=== PATIENT | female | born 1985 | race Caucasian/White ===

== ENCOUNTER 2020-10-31 03:58 | Emergency (ER) | payer OTHER, MEDICAID, SELFPAY ==
--- NOTE | 2020-10-31 04:00 | XR_ITS ---
WS: [id number] Portable AP upright chest, 10/31/2020 Clinical Data: cp Comparison: Portable chest, 09/06/2015. Findings: No nodules, masses or effusions are seen. The heart is normal. The pulmonary vascularity is not increased. No pneumonia or pneumothorax is seen. There are decorative items over the breasts. Mo nitor leads are on the chest wall. XR/XR chest 1V portable [id number] Impression: Negative chest.
[2020-10-31 04:06] VITALS: BP 83/53; PULSE 77; RESP 18; TEMP 36.8; O2SAT 99; BMI 19.3
--- NOTE | 2020-10-31 04:10 | W.ED.CHESTPA ---
HPI - Chest Pain General: Chief Complaint: Chest Pain Stated Complaint: CP Time Seen by Provider: 10/31/20 04:00 Source: patient Mode of arrival: ambulatory Limitations: no limitations History of Present Illness: HPI narrative: 35-year-old female states over the last week she has had a productive cough and wheezing. She states that today with her cough started having a sharp pain in the center of her chest. States it is much worse with her cough and palpation. States her pain is currently a 5 out of 10. She denies any shortness of breath. She denies any worsening improving factors. Denies any fevers. Associated symptoms: Reports dyspnea; Deny abdominal pain, fever(s), nausea or vomiting Review of Systems Const: Denies: fever(s), chills, body aches or change in appetite Eyes: Denies: blurry vision or eye discomfort ENMT: Denies: throat pain or dental pain Card: Reports: lightheadedness; Denies: chest pain Resp: Reports: dyspnea and productive cough GI: Denies: abdominal pain, nausea, vomiting or diarrhea : Denies: dysuria Musc: Denies: neck pain or back pain Skin/Breast: Denies: rash Neuro: Denies: headache(s) Psych: Denies: depression Willy/Lymph: Denies: easy bruising All/Imm: Denies: urticaria PFSH ED PFSH: Medical History (Updated 10/31/20 @ 05:31 by Saundra Israel MD) Anxiety and depression . Migraine headache Social History Smoking and tobacco status: former smoker Alcohol intake: never Physical Exam Const: COMMON NORMALS: no acute distress, patient oriented x3 and healthy appearing HENMT: COMMON NORMALS: normocephalic and atraumatic HEAD & SCALP: normocephalic and atraumatic Eye: COMMON NORMALS: Equal, round and reactive pupils present and EOMs intact bilaterally PUPIL: Yes Equal, round and reactive pupils present Neck/C-Spine: COMMON NORMALS: full ROM and supple Chest: COMMONS NORMALS: normal inspection of the chest OTHER: point tender over left chest reproduces pain Resp: COMMON NORMALS: normal respiratory effort, No retractions and No use of accessory muscles EFFORT & INSPECTION: Yes audible wheezes Cardio: COMMON NORMALS: regular rate, regular rhythm and No murmurs present (Cardio) RATE: regular rate RHYTHM: regular rhythm GI: COMMON NORMALS: Normal to inspection, nondistended, normoactive bowel sounds present, Soft to palpation, non-tender and no masses PALPATION: Yes Soft to palpation Extremity: COMMON NORMALS: normal to inspection and full ROM Neuro: COMMON NORMALS: patient oriented x3, moves all extremities and no focal motor deficits Psych: COMMON NORMALS: mental status grossly normal, Normal thought process present and cooperative THOUGHT PROCESS: Normal thought process present Skin: COMMON NORMALS: no rashes or lesions noted and no wounds GENERAL SKIN EXAM: no rashes or lesions noted Course Vital Signs: Vital signs: Vital Signs Temperature 98.3 F 10/31/20 04:06 Pulse Rate 83 10/31/20 06:09 Respiratory Rate 18 10/31/20 06:09 Blood Pressure 99/68 10/31/20 06:09 Pulse Oximetry 97 10/31/20 06:09 MDM - Chest Pain MDM Narrative: Medical decision making narrative: Patient presents here with cough congestion with likely bronchitis. She does have chest pain is likely muscular from her cough. She is point tender and her troponins negative. She has no signs of pulmonary embolism or acute coronary syndrome. We will place her on steroid albuterol and antibiotics. She is to follow-up with PCP and return if worsening. She understands and agrees to plan. Lab Data: Labs: Lab Results 10/31/20 10/31/20 10/31/20 Range/Units 04:20 04:20 04:20 WBC 7.8 (4.0-10.0) 10^3/ uL RBC 5.18 (4.1-5.3) 10^6/u L Hgb 14.9 (11.5-15.3) g/dL Hct 45.2 (37.0-47.0) % MCV 87.3 (81-99) fL MCH 28.8 (28.0-34.0) pg MCHC 33.0 (30.0-36.0) g/dL RDW 12.0 L (12.1-15.1) % Plt Count 402 H (130-400) 10^3/c mm MPV 9.6 (7.4-10.4) fL Neut % (Auto) 59.2 % Lymph % (Auto) 27.4 % [place] % (Auto) 9.1 % Eos % (Auto) 3.0 % Baso % (Auto) 0.9 % Neut # (Auto) 4.61 (1.8-7.7) 10^3/u L Lymph # (Auto) 2.1 (0.8-4.8) 10^3/u L [place] # (Auto) 0.7 (0.2-0.9) 10^3/u L Eos # (Auto) 0.2 (0.0-0.8) 10^3/u L Baso # (Auto) 0.1 (0.0-0.1) 10^3/u L Nucleated RBC % (a uto) 0 % Nucleated RBCs # 0.0 /100WBC Sodium 134 L (136-145) mmol/L Potassium 3.8 (3.5-5.1) mmol/L Chloride 97 L (98-107) mmol/L Carbon Dioxide 26 (22-29) mmol/L Anion Gap 14.8 (5-19) BUN 13 (6-20) mg/dL Creatinine 0.6 (0.5-0.9) mg/dL GFR Calculation 112.5 (90-130) mL/min Glucose 115 (65-115) mg/dL Calculated Osmolal ity 279 L (285-295) mOsm/k g Calcium 9.7 (8.5-10.5) mg/dL Total Bilirubin 0.5 (0.15-1.2) mg/dL AST 14 (0-32) U/L ALT < 5 (0-33) U/L Alkaline Phosphata se 109 H (35-105) IU/L Troponin T Baselin e 6 (0-10) ng/L Total Protein 7.8 (6.6-8.7) g/dL Albumin 5.0 (3.5-5.2) g/dL Globulin 2.8 (1.3-4.6) g/dL Imaging Data^: CXR: Attestation: I personally reviewed and interpreted this imaging study as follows: My impression: no acute abnormality EKG Data^: EKG 1: Attestation: I personally reviewed and interpreted this EKG as follows: EKG interpretation date: 10/31/20 EKG interpretation time: 04:07 Interpretation: nsr hr [address] or t wave abnormalities qrs 84 qtc 421 Discharge Plan Discharge Patient Disposition: Home Clinical Impression: Bronchitis Chest pain Qualifiers: Chest pain type: unspecified Qualified Code(s): R07.9 - Chest pain, unspecified Condition: Stable Prescriptions: New cephalexin 500 mg capsule 500 mg PO TID 7 Days Qty: 21 RF: 0 albuterol sulfate 90 mcg/actuation HFA aerosol inhaler 2 inh INHALATION Q6H PRN (Reason: shortness of breath or wheezing) Qty: 8 RF: 0 Naprosyn 500 mg tablet 500 mg PO BID PRN (Reason: pain) Qty: 20 RF: 0 prednisone 50 mg tablet 50 mg PO DAILY Qty: 5 RF: 0 No Action sulfamethoxazole-trimethoprim [Bactrim DS] 800-160 mg tablet 1 tab PO BID Qty: 30 RF: 0 citalopram 40 mg tablet 80 mg PO DAILY 90 Days Qty: 180 RF: 1 sumatriptan succinate [Imitrex] 100 mg tablet 100 mg PO Q2H PRN (Reason: migraine headache) Qty: 10 RF: 3 estradiol [Estrace] 0.5 mg tablet 0.5 mg PO DAILY 30 Days Qty: 30 RF: 5 Discharge Orders: Discharge ED (Routine); Ordered 10/31/20 Ordered By: Saundra Israel Referrals: Kali Liriano MD [Primary Care Provider] - 1-3 days Discharge Diet: Advance as tolerated Discharge Activity: Resume usual activity Patient Instructions: Acute Bronchitis (ED) Stand Alone Forms: Work/School Release Coding Level of Care Code 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
[2020-10-31] MEDS: ondansetron 2 mg/ML SDV 2 mL 4 MG IVP (04:25)
[2020-10-31 04:26] LABS: Basophils # 0.1 10^3/uL (0.0-0.1); Basophils % 0.9 %; Eosinophils # 0.2 10^3/uL (0.0-0.8); Hematocrit 45.2 % (37.0-47.0); Hemoglobin 14.9 g/dL (11.5-15.3); Lymphocytes # 2.1 10^3/uL (0.8-4.8); Lymphocytes % 27.4 %; Mean Corpuscular Hemoglobin 28.8 pg (28.0-34.0); Mean Corpuscular Volume 87.3 fL (81-99); Mean Platelet Volume 9.6 fL (7.4-10.4); Monocytes # 0.7 10^3/uL (0.2-0.9); Monocytes % 9.1 %; Neutrophils # 4.61 10^3/uL (1.8-7.7); Neutrophils % 59.2 %; Nucleated Red Blood Cells % 0 %; Platelet Count 402 10^3/cmm (130-400); Red Blood Count 5.18 10^6/uL (4.1-5.3); White Blood Count 7.8 10^3/uL (4.0-10.0)
[2020-10-31 04:27] VITALS: RESP 22; O2SAT 96
[2020-10-31] MEDS: morphine 4 mg/mL SDV 1 mL IVP (04:27)
[2020-10-31] MEDS: dexamethasone 10 mg/mL INJ IVP (04:31)
[2020-10-31 04:37] VITALS: PULSE 80; RESP 19; O2SAT 99
[2020-10-31] MEDS: ipratropium-albuterol 3 mL Neb INHALATION (04:37)
[2020-10-31 04:42] VITALS: PULSE 88
[2020-10-31 04:47] LABS: Alanine Aminotransferase < 5 U/L (0-33); Alkaline Phosphatase 109 IU/L (35-105); Anion Gap 14.8 (5-19); Aspartate Amino Transferase 14 U/L (0-32); Carbon Dioxide 26 mmol/L (22-29); Chloride 97 mmol/L (98-107); Globulin 2.8 g/dL (1.3-4.6); Glucose 115 mg/dL (65-115); Potassium 3.8 mmol/L (3.5-5.1); Sodium 134 mmol/L (136-145); Total Bilirubin 0.5 mg/dL (0.15-1.2); Total Protein 7.8 g/dL (6.6-8.7)
[2020-10-31 04:49] LABS: Troponin(5th) Baseline 6 ng/L (0-10)
[2020-10-31 04:52] VITALS: BP 110/86; PULSE 87; RESP 17; O2SAT 100
[2020-10-31 05:36] LABS: Blood Urea Nitrogen 13 mg/dL (6-20); Calcium 9.7 mg/dL (8.5-10.5); Glomerular Filtration Rate 112.5 mL/min (90-130)
[2020-10-31 05:37] LABS: Osmolality Calculated 279 mOsm/kg (285-295)
[2020-10-31 06:09] VITALS: BP 99/68; PULSE 83; RESP 18; O2SAT 97
== END 2020-10-31 06:09 | disposition home or self-care (01) ==
PROVIDERS: Emergency Provider Emergency Medicine; PCP Family Medicine
DX: R07.9 Chest pain, unspecified (principal); J40 Bronchitis, not specified as acute or chronic; Z87.891 Personal history of nicotine dependence
CPT/HCPCS: 71045; 80053; 84484; 85025; 94640; 96374; 96375; 99284; J1100; J2270; J2405

== ENCOUNTER 2021-02-21 19:57 | Inpatient (IN) | payer OTHER, MEDICAID, SELFPAY ==
[2021-02-21 20:14] VITALS: BP 139/79; PULSE 70; RESP 16; TEMP 36.6; O2SAT 100; BMI 19.7
[2021-02-21 20:22] LABS: Basophils # 0.1 10^3/uL (0.0-0.1); Basophils % 0.6 %; Eosinophils # 0.1 10^3/uL (0.0-0.8); Eosinophils % 1.5 %; Hematocrit 38.2 % (37.0-47.0); Hemoglobin 12.6 g/dL (11.5-15.3); Lymphocytes # 3.4 10^3/uL (0.8-4.8); Lymphocytes % 37.1 %; Mean Corpuscular Hemoglobin 28.6 pg (28.0-34.0); Mean Corpuscular Volume 86.6 fl (81-99); Mean Platelet Volume 9.2 fL (7.4-10.4); Monocytes # 0.8 10^3/uL (0.2-0.9); Monocytes % 8.4 %; Neutrophils # 4.82 10^3/uL (1.8-7.7); Neutrophils % 52.1 %; Nucleated Red Blood Cells % 0 %; Platelet Count 482 10^3/cmm (130-400); Red Blood Count 4.41 10^6/uL (4.1-5.3); Red Cell Distribution Width 12.3 % (12.1-15.1); White Blood Count 9.3 10^3/uL (4.0-10.0)
--- NOTE | 2021-02-21 20:29 | W.ED.PSYCH ---
HPI - Psych General: Chief Complaint: Psychiatric Symptoms Stated Complaint: SI/HI Time Seen by Provider: 02/21/21 20:14 History of Present Illness: HPI Narrative: 35-year-old female with a history of depression. She is not been hospitalized in the past. She states that she had a plan to take her life over a year ago with a gun. For the past couple of weeks she has been more depressed again. In the last year she has lost a child. She says her plan has been to drive a car off of a [place]. Shee wakes daily wondering why she still here. complaint: suicidal ideation and feels depressed Onset (ago): day(s) Duration: constant and getting worse History of same: Yes Relieving factors: none Exacerbating factors: none Context: recent drug abuse (MJ) and significant life stressor Associated symptoms: Deny auditory hallucinations or visual hallucinations If self harm: admits thoughts of self harm and has plan Review of Systems Const: Denies: fever(s) or chills Card: Denies: chest pain Resp: Denies: dyspnea, productive cough or non-productive cough GI: Denies: abdominal pain, nausea or vomiting : Denies: difficulty voiding Musc: Reports: back pain Neuro: Reports: headache(s); Denies: difficulty walking or confusion Psych: Denies: visual hallucinations or auditory hallucinations PFSH ED PFSH: Medical History (Updated 02/21/21 @ 21:43 by Pawel Ireland DO) Anxiety and depression . Migraine headache Social History Smoking and tobacco status: former smoker Alcohol intake: never Physical Exam Const: GENERAL APPEARANCE: well developed ORIENTATION/CONSCIOUSNESS: Yes oriented to person, Yes oriented to place and Yes oriented to time HENMT: COMMON NORMALS: normocephalic, external ears normal and Normal external nose present HEAD & SCALP: normocephalic FACE & SINUS: normal facial exam NOSE: Normal external nose present and No nasal discharge present EXTERNAL EAR: Yes external ears normal Eye: COMMON NORMALS: Equal, round and reactive pupils present, EOMs intact bilaterally and conjunctivae normal EYELID: eyelids normal CONJUNCTIVA: Yes conjunctivae normal PUPIL: Yes Equal, round and reactive pupils present Neck/C-Spine: GENERAL: No tracheal deviation Chest: COMMONS NORMALS: normal inspection of the chest CHEST: No tenderness Resp: COMMON NORMALS: clear to auscultation bilaterally EFFORT & INSPECTION: No tachypneic, No respiratory distress, No retractions, No uses accessory muscles and No tracheal deviation AUSCULTATION: clear to auscultation bilaterally, no rhonchi, no wheezes and lung sounds not diminished Cardio: COMMON NORMALS: regular rate and regular rhythm RATE: regular rate RHYTHM: regular rhythm HEART SOUNDS: no murmurs PERIPHERAL PULSES: radial pulses present GI: INSPECTION: No abdominal distension AUSCULTATION: No Hyperactive bowel sounds present and No Hypoactive bowel sounds present PALPATION: No Guarding due to palpation present (GI) and No Rigid due to palpation PERCUSSION: no dullness to percussion and no tympanic to percussion Neuro: SENSORIUM/ORIENTATION: Yes oriented to person, Yes oriented to place and Yes oriented to time Psych: COMMON NORMALS: Normal thought process present, cooperative and speech normal APPEARANCE: Yes grossly normal ATTITUDE: Yes calm ACTIVITY/MOTOR BEHAVIOR: Yes psychomotor slowing SPEECH: Yes normal speech MOOD & AFFECT: Yes depressed mood and Yes tearful THOUGHT PROCESS: Normal thought process present THOUGHT CONTENT: Yes Suicidality present and No Hallucination(s) present ATTENTION/CONCENTRATION: Yes attention grossly intact and Yes concentration grossly intact MEMORY/COGNITION: Yes memory grossly intact and Yes cognition grossly intact INSIGHT: Fair insight present (Psych) JUDGEMENT: Fair judgement present (Psych) Skin: COMMON NORMALS: no rashes or lesions noted GENERAL SKIN EXAM: no rashes or lesions noted Course Consultations: Consultation #1: malik Time: 21:42 Vital Signs: Vital signs: Vital Signs Temperature 97.9 F 02/21/21 20:14 Pulse Rate 70 02/21/21 20:14 Respiratory Rate 16 02/21/21 20:14 Blood Pressure 139/79 02/21/21 20:14 Pulse Oximetry 100 02/21/21 20:14 MDM - Psych MDM Narrative: Medical decision making narrative: 35-year-old female voluntarily with depression and suicidal ideation. She is medically stable. Psychiatry consulted from the ER. She will be admitted to Lab Data: Labs: Lab Results 02/21/21 02/21/21 02/21/21 Range/Units 20:12 20:12 20:12 WBC 9.3 (4.0-10.0) 10^3/ uL RBC 4.41 (4.1-5.3) 10^6/u L Hgb 12.6 (11.5-15.3) g/dL Hct 38.2 (37.0-47.0) % MCV 86.6 (81-99) fl MCH 28.6 (28.0-34.0) pg MCHC 33.0 (30.0-36.0) g/dL RDW 12.3 (12.1-15.1) % Plt Count 482 H (130-400) 10^3/c mm MPV 9.2 (7.4-10.4) fL Neut % (Auto) 52.1 % Lymph % (Auto) 37.1 % [place] % (Auto) 8.4 % Eos % (Auto) 1.5 % Baso % (Auto) 0.6 % Neut # (Auto) 4.82 (1.8-7.7) 10^3/u L Lymph # (Auto) 3.4 (0.8-4.8) 10^3/u L [place] # (Auto) 0.8 (0.2-0.9) 10^3/u L Eos # (Auto) 0.1 (0.0-0.8) 10^3/u L Baso # (Auto) 0.1 (0.0-0.1) 10^3/u L Nucleated RBC % (a uto) 0 % Nucleated RBCs # 0.0 /100WBC Sodium 135 L (136-145) mmol/L Potassium 3.5 (3.5-5.1) mmol/L Chloride 98 (98-107) mmol/L Carbon Dioxide 29 (22-29) mmol/L Anion Gap 11.5 (5-19) BUN 8 (6-20) mg/dL Creatinine 0.6 (0.5-0.9) mg/dL GFR Calculation 112.5 (90-130) mL/min Glucose 77 (65-115) mg/dL Calculated Osmolal ity 277 L (285-295) mOsm/k g Calcium 9.1 (8.5-10.5) mg/dL Total Bilirubin 0.2 (0.15-1.2) mg/dL AST 16 (0-32) U/L ALT 9 (0-33) U/L Alkaline Phosphata se 96 (35-105) IU/L Total Protein 7.7 (6.6-8.7) g/dL Albumin 4.8 (3.5-5.2) g/dL Globulin 2.9 (1.3-4.6) g/dL TSH 3.03 (0.27-4.20) uIU/ mL HCG, Qual Negative (Negative) Urine Color (Yellow) Urine Appearance (CLEAR) Urine pH (5-7) Ur Specific Gravit y (1.005-1.030) Urine Protein (Negative) Urine Glucose (UA) (Normal) Urine Ketones (Negative) Urine Blood (Negative) Urine Nitrate (Negative) Urine Bilirubin (Negative) Urine Urobilinogen (Negative) mg/dL Ur Leukocyte [place] ase (Negative) Urine RBC (0-2) /hpf Urine WBC (0-5) /hpf Ur Squamous Epith Cells (0-5) /hpf Amorphous Sediment Urine Bacteria (NONE) /hpf Salicylates < 0.3 L (3-10) mg/dL Urine Opiates Scre en (Negative) ng/mL Acetaminophen < 5.0 L (10-30) ug/mL Ur Barbiturates Sc reen (Negative) ng/mL Ur Phencyclidine S crn (Negative) ng/mL Ur Amphetamines Sc reen (Negative) ng/mL U Benzodiazepines Scrn (Negative) ng/mL Urine Cocaine Scre en (Negative) ng/mL U Marijuana (THC) Screen (Negative) ng/mL Ethyl Alcohol < 10 (0-10) mg/dL SARS-CoV-2 Ag (Rap id) (Negative) 02/21/21 02/21/21 02/21/21 Range/Units 20:12 20:12 20:12 WBC (4.0-10.0) 10^3/ uL RBC (4.1-5.3) 10^6/u L Hgb (11.5-15.3) g/dL Hct (37.0-47.0) % MCV (81-99) fl MCH (28.0-34.0) pg MCHC (30.0-36.0) g/dL RDW (12.1-15.1) % Plt Count (130-400) 10^3/c mm MPV (7.4-10.4) fL Neut % (Auto) % Lymph % (Auto) % [place] % (Auto) % Eos % (Auto) % Baso % (Auto) % Neut # (Auto) (1.8-7.7) 10^3/u L Lymph # (Auto) (0.8-4.8) 10^3/u L [place] # (Auto) (0.2-0.9) 10^3/u L Eos # (Auto) (0.0-0.8) 10^3/u L Baso # (Auto) (0.0-0.1) 10^3/u L Nucleated RBC % (a uto) % Nucleated RBCs # /100WBC Sodium (136-145) mmol/L Potassium (3.5-5.1) mmol/L Chloride (98-107) mmol/L Carbon Dioxide (22-29) mmol/L Anion Gap (5-19) BUN (6-20) mg/dL Creatinine (0.5-0.9) mg/dL GFR Calculation (90-130) mL/min Glucose (65-115) mg/dL Calculated Osmolal ity (285-295) mOsm/k g Calcium (8.5-10.5) mg/dL Total Bilirubin (0.15-1.2) mg/dL AST (0-32) U/L ALT (0-33) U/L Alkaline Phosphata se (35-105) IU/L Total Protein (6.6-8.7) g/dL Albumin (3.5-5.2) g/dL Globulin (1.3-4.6) g/dL TSH (0.27-4.20) uIU/ mL HCG, Qual (Negative) Urine Color Yellow (Yellow) Urine Appearance Sl cloudy A (CLEAR) Urine pH 6.5 (5-7) Ur Specific Gravit y 1.010 (1.005-1.030) Urine Protein Neg (Negative) Urine Glucose (UA) Norm (Normal) Urine Ketones Negative (Negative) Urine Blood Neg (Negative) Urine Nitrate Negative (Negative) Urine Bilirubin Neg (Negative) Urine Urobilinogen Norm (Negative) mg/dL Ur Leukocyte [place] ase Trace H (Negative) Urine RBC 0-4 H (0-2) /hpf Urine WBC 10-15 H (0-5) /hpf Ur Squamous Epith Cells 15-25 H (0-5) /hpf Amorphous Sediment Not Reportable Urine Bacteria 1+ H (NONE) /hpf Salicylates (3-10) mg/dL Urine Opiates Scre en Negative (Negative) ng/mL Acetaminophen (10-30) ug/mL Ur Barbiturates Sc reen Negative (Negative) ng/mL Ur Phencyclidine S crn Negative (Negative) ng/mL Ur Amphetamines Sc reen Negative (Negative) ng/mL U Benzodiazepines Scrn Negative (Negative) ng/mL Urine Cocaine Scre en Negative (Negative) ng/mL U Marijuana (THC) Screen Positive H (Negative) ng/mL Ethyl Alcohol (0-10) mg/dL SARS-CoV-2 Ag (Rap id) Negative (Negative) Discharge Plan Discharge Patient Disposition: Admitted As Inpatient Clinical Impression: Suicidal ideation Condition: Stable Coding Level of Care Code ED Greenskeeper Head for Edwige Fwgrant 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
[2021-02-21 20:31] LABS: HCG Qualitative Urine. Negative (Negative)
[2021-02-21 20:40] LABS: Amphetamines Screen Urine Negative (Negative); Barbiturates Screen Urine Negative (Negative); Benzodiazepines Screen Urine Negative (Negative); Cocaine Screen Urine Negative (Negative); Opiate Screen Urine Negative (Negative); PCP Screen Urine Negative (Negative); THC Screen Urine Positive (Negative)
[2021-02-21 20:53] LABS: SARS Covid-2 Antigen Negative (Negative)
[2021-02-21 20:57] LABS: Add Urine Microscopic? YES; Bilirubin Urine Neg (Negative); Blood Urine Neg (Negative); Glucose Urine UA Norm (Normal); Ketones Urine Negative (Negative); Leukocyte Esterase Urine Trace (Negative); Nitrate Urine Negative (Negative); Protein Urine Neg (Negative); Urine Color Yellow (Yellow); Urobilinogen Urine Norm (Negative); pH Urine 6.5 (5-7)
[2021-02-21 20:58] LABS: Add Urine Culture? No; Bacteria Urine 1+ /hpf; RBC Urine 0-4 /hpf (0-2); Squamous Epithelial Cell Urine 15-25 /hpf (0-5)
[2021-02-21 21:05] LABS: Alanine Aminotransferase 9 U/L (0-33); Albumin Level 4.8 g/dL (3.5-5.2); Alkaline Phosphatase 96 IU/L (35-105); Anion Gap 11.5 (5-19); Aspartate Amino Transferase 16 U/L (0-32); Blood Urea Nitrogen 8 mg/dL (6-20); Calcium 9.1 mg/dL (8.5-10.5); Carbon Dioxide 29 mmol/L (22-29); Chloride 98 mmol/L (98-107); Globulin 2.9 g/dL (1.3-4.6); Glomerular Filtration Rate 112.5 mL/min (90-130); Glucose 77 mg/dL (65-115); Osmolality Calculated 277 mOsm/kg (285-295); Potassium 3.5 mmol/L (3.5-5.1); Sodium 135 mmol/L (136-145); Thyroid Stimulating Hormone 3.03 uIU/mL (0.27-4.20); Total Bilirubin 0.2 mg/dL (0.15-1.2); Total Protein 7.7 g/dL (6.6-8.7)
[2021-02-21 21:19] LABS: Acetaminophen < 5.0 ug/mL (10-30); Alcohol Level < 10 mg/dL (0-10); Salicylate < 0.3 mg/dL (3-10)
[2021-02-21 22:33] VITALS: BP 115/74; PULSE 77; RESP 19; TEMP 36.6; O2SAT 100
[2021-02-21] MEDS: hyDROXYzine 25 mg Capsule 50 MG PO (23:20)
[2021-02-21] MEDS: trazodone 50 mg Tablet PO (23:20)
[2021-02-21] MEDS: acetaminophen 325 mg Tablet 650 MG PO (23:20)
[2021-02-21] MEDS: ondansetron 4 MG Tablet PO (23:22)
[2021-02-21] MEDS: citalopram 20 mg Tablet 40 MG PO (23:31)
[2021-02-22 00:25] VITALS: PULSE 74; RESP 17; O2SAT 98
[2021-02-22 06:00] VITALS: BP 80/48; PULSE 65; RESP 16; TEMP 36.7; O2SAT 97
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
[2021-02-22 14:00] VITALS: BP 80/48; PULSE 65; RESP 16; TEMP 36.7; O2SAT 97
[2021-02-22 18:13] VITALS: BP 95/53; PULSE 82; RESP 18; TEMP 36.9; O2SAT 97
[2021-02-22] MEDS: acetaminophen 325 mg Tablet 650 MG PO (19:43)
[2021-02-22 20:32] VITALS: BP 98/62; PULSE 77; TEMP 36.9; O2SAT 97
[2021-02-22] MEDS: ARIPiprazole 10 mg Tablet 5 MG PO (21:43)
[2021-02-22] MEDS: citalopram 20 mg Tablet 40 MG PO (21:43)
[2021-02-22] MEDS: hyDROXYzine 25 mg Capsule 50 MG PO (22:47)
[2021-02-22] MEDS: trazodone 50 mg Tablet PO (22:47)
[2021-02-23 05:21] VITALS: BMI 19.7
[2021-02-23 06:00] VITALS: BP 87/60; PULSE 63; RESP 16; TEMP 36.8; O2SAT 96
[2021-02-23] MEDS: ARIPiprazole 10 mg Tablet 5 MG PO (08:34)
[2021-02-23 14:25] VITALS: BP 105/72; PULSE 74; RESP 16; TEMP 36.7; O2SAT 98
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
[2021-02-23 17:24] VITALS: BP 105/72; PULSE 74; RESP 16; TEMP 36.7; O2SAT 98
== END 2021-02-23 17:44 | disposition home or self-care (01) | DRG 880 ==
LOC: ER 21:43 → NP 02-22 05:34
PROVIDERS: Admitting Provider Psychiatry & Neurology Psychiatry; Emergency Provider Emergency Medicine; PCP Family Medicine; Visit Provider Psychiatry & Neurology Psychiatry
DX: F41.8 Other specified anxiety disorders (principal); R45.851 Suicidal ideations; L01.00 Impetigo, unspecified; E28.39 Other primary ovarian failure; F43.10 Post-traumatic stress disorder, unspecified; F12.10 Cannabis abuse, uncomplicated; G43.709 Chronic migraine without aura, not intractable, without status migrainosus; R59.9 Enlarged lymph nodes, unspecified; Z63.4 Disappearance and death of family member; Z87.59 Personal history of other complications of pregnancy, childbirth and the puerperium; Z87.891 Personal history of nicotine dependence; Z86.59 Personal history of other mental and behavioral disorders; Z20.822 Contact with and (suspected) exposure to COVID-19
CPT/HCPCS: 80053; 80306; 80307; 81001; 81025; 84443; 85025; 87426; 99285; J3535; Q0162

== ENCOUNTER → 2021-03-07 14:33 | Outpatient (BNVA) | payer OTHER, MEDICAID, SELFPAY | PROVIDERS: PCP Family Medicine; Visit Provider Psychiatry & Neurology Psychiatry | DX: F43.12 Post-traumatic stress disorder, chronic (principal); F33.2 Major depressive disorder, recurrent severe without psychotic features; F41.1 Generalized anxiety disorder; F12.20 Cannabis dependence, uncomplicated | CPT/HCPCS: 99204 ==

== ENCOUNTER → 2021-03-10 14:38 | Outpatient (BNVA) | payer OTHER, MEDICAID, SELFPAY | PROVIDERS: PCP Family Medicine; Visit Provider Counselor Mental Health | DX: F43.12 Post-traumatic stress disorder, chronic (principal); F33.2 Major depressive disorder, recurrent severe without psychotic features; F41.1 Generalized anxiety disorder; F12.20 Cannabis dependence, uncomplicated | CPT/HCPCS: 90834 ==

== ENCOUNTER → 2021-03-18 15:18 | Outpatient (BNVA) | payer OTHER, MEDICAID, SELFPAY | PROVIDERS: PCP Family Medicine; Visit Provider Counselor Mental Health | DX: F41.1 Generalized anxiety disorder (principal); F33.2 Major depressive disorder, recurrent severe without psychotic features; F43.12 Post-traumatic stress disorder, chronic; Z63.4 Disappearance and death of family member | CPT/HCPCS: 90834 ==

== ENCOUNTER → 2021-03-21 15:19 | Outpatient (BNVA) | payer OTHER, SELFPAY | PROVIDERS: PCP Family Medicine; Visit Provider Psychiatry & Neurology Psychiatry | DX: F41.1 Generalized anxiety disorder (principal); F33.2 Major depressive disorder, recurrent severe without psychotic features; F43.12 Post-traumatic stress disorder, chronic; Z63.4 Disappearance and death of family member; F12.20 Cannabis dependence, uncomplicated | CPT/HCPCS: 99213 ==

== ENCOUNTER → 2021-06-16 15:45 | Outpatient (BNVA) | payer OTHER, SELFPAY | PROVIDERS: PCP Family Medicine; Visit Provider Psychiatry & Neurology Psychiatry | DX: F41.1 Generalized anxiety disorder (principal); F33.2 Major depressive disorder, recurrent severe without psychotic features; F43.12 Post-traumatic stress disorder, chronic; F12.20 Cannabis dependence, uncomplicated; Z63.4 Disappearance and death of family member | CPT/HCPCS: 99214 ==

== ENCOUNTER → 2021-06-25 14:53 | Outpatient (BNVA) | payer OTHER, SELFPAY | PROVIDERS: PCP Family Medicine; Visit Provider Counselor Mental Health | DX: F41.1 Generalized anxiety disorder (principal); F33.2 Major depressive disorder, recurrent severe without psychotic features; F43.12 Post-traumatic stress disorder, chronic | CPT/HCPCS: 90834 ==

== ENCOUNTER → 2021-07-21 15:39 | Outpatient (BNVA) | payer OTHER, SELFPAY | PROVIDERS: PCP Family Medicine; Visit Provider Counselor Mental Health | DX: F41.1 Generalized anxiety disorder (principal); F33.2 Major depressive disorder, recurrent severe without psychotic features; F43.12 Post-traumatic stress disorder, chronic; Z63.4 Disappearance and death of family member | CPT/HCPCS: 90832 ==

== ENCOUNTER 2022-02-20 19:54 | Emergency (ER) | payer OTHER, MEDICAID, SELFPAY ==
[2022-02-20 20:05] VITALS: BP 105/75; PULSE 87; RESP 16; TEMP 36.6; O2SAT 98; BMI 21.9
--- NOTE | 2022-02-20 20:15 | W.ED.ABDPA2 ---
HPI - Abdominal Pain General: Chief Complaint: Abdominal Pain Stated Complaint: abd pain Time Seen by Provider: 02/20/22 20:15 History of Present Illness: Ms Vasquez is a 36-year-old lady who presents to the emergency department due to abdominal pain. She reports onset of symptoms without known provoking factor gradually approximately 6 months ago. She has had episodic right upper quadrant pain that has become more frequent. She notes foul-smelling burps and also some loose or watery stools. Overall course of symptoms has worsened with increasing frequency. Over the past few days she has had basically constant pain. Symptoms are exacerbated by eating but do not go with rest. Intensity is moderate to severe. Denies other signs of systemic illness. Does have a history of appendectomy and hysterectomy. No other specific changes in health, exacerbating, or alleviating factors identified. Onset (ago): month(s) Pain Consistency: constant Location: RUQ Severity: severe Quality: aching and sharp Radiation: none Migration to: no migration Exacerbating factors: eating Relieving factors: nothing Associated Symptoms: Reports belching and nausea Review of Systems General: Reports: 10 or more systems reviewed and unremarkable except in HPI and below GI: Reports: nausea and belching PFSH ED PFSH: Medical History Anxiety and depression . Migraine headache Psychiatric care Surgical History History of appendectomy History of total hysterectomy Social History Smoking and tobacco status: former smoker Second hand smoke exposure: Yes Alcohol intake: never Physical Exam Const: COMMON NORMALS: alert GENERAL APPEARANCE: cooperative and well developed HENMT: COMMON NORMALS: normocephalic and atraumatic HEAD & SCALP: normocephalic and atraumatic Eye: COMMON NORMALS: conjunctivae normal CONJUNCTIVA: Yes conjunctivae normal SCLERA: sclerae normal Neck/C-Spine: COMMON NORMALS: supple GENERAL: Yes trachea midline Resp: COMMON NORMALS: normal respiratory effort and clear to auscultation bilaterally EFFORT & INSPECTION: Yes able to speak in complete sentences AUSCULTATION: clear to auscultation bilaterally Cardio: COMMON NORMALS: regular rate and regular rhythm RATE: regular rate RHYTHM: regular rhythm GI: COMMON NORMALS: Soft to palpation PALPATION: Yes Soft to palpation, Yes Tenderness to palpation present (GI) Details: RUQ, No Guarding due to palpation present (GI) and No Rigid due to palpation Extremity: GENERAL: Yes normal exam except as noted and No edema Neuro: COMMON NORMALS: moves all extremities SENSORIUM/ORIENTATION: Yes alert and No Orientation impaired Psych: COMMON NORMALS: mental status grossly normal and Normal thought process present THOUGHT PROCESS: Normal thought process present Course ED course: - Patient was seen and evaluated by me at bedside - Patient placed on cardiac monitors, IV access obtained - Initial evaluation notable for exam as above - Labs personally interpreted by me - analgesia, and antiemetic given - Labs notable for no leukocytosis, normal hemoglobin. Metabolic panel similar to prior. Negative hCG. No evidence of urinary tract infection. - Imaging notable for negative right upper quadrant ultrasound. Given persistence of symptoms and patient description after discussion it was decided that we will proceed with CT scanning. CT notable for likely colitis. Left ovarian cyst discussed with patient. - Upon serial reexamination after treatment the patient was improved with treatment. - Based on patient history, evaluation, and testing as interpreted the most likely cause of the patient's condition is colitis. Patient able to tolerate p.o. intake. - The results of ED evaluation were discussed with the patient including prescriptions and/or symptomatic cares (if applicable) including appropriate and responsible use, followup plan, and return precautions. The patient verbalized understanding and felt safe for discharge. - Patient discharged in satisfactory condition. Note: Click bubbles or prepopulated orantes in note writing are used for assistance with data collection and billing and are inherently more limited than narrative and other text portions of this note. Please use narrative for additional clinical history and defer to narrative/free test for any case of contradictory information. If information appears in only free text or click bubble it should be considered present or absent as reported. Please contact note literary writer for clarifications of clinical information or contradictory information. MDM is a brief summary, contradictory or erroneous seeming information should be clarified and full note should be reviewed. Vital Signs: Vital signs: Vital Signs Temperature 97.9 F 02/20/22 20:05 Pulse Rate 62 02/20/22 23:35 Respiratory Rate 16 02/20/22 23:35 Blood Pressure 102/63 02/20/22 23:35 Pulse Oximetry 98 02/20/22 23:35 Oxygen Delivery Me thod 02/20/22 20:05 MDM - Abdominal Pain Medical Decision Making 36-year-old lady presenting with abdominal pain that has progressively worsened and has been significant for the past 4 days. Laboratory studies without significant abnormality. CT imaging notable for colitis. Patient can tolerate p.o. intake and is satisfactory for outpatient management. Return precautions given. Medical Records I reviewed the patient's medical records. Lab Data I reviewed the patient's lab results. : 02/20/22 20:21 02/20/22 20:21 Labs/Radiology: Radiology Impressions Abdomen Ultrasound 02/20/22 20:33 IMPRESSION: No acute findings. Abdomen/Pelvis CT 02/20/22 21:52 IMPRESSION: 1. Liquid stool is seen within the nondilated ascending and transverse colon with a decompressed descending and sigmoid colon evident. Mild colitis cannot be entirely excluded. 2. Probable benign or functioning left ovarian cyst measuring up to 4.1 cm. No further workup needed. Laboratory Results WBC 8.1 10^3/uL (4.0-10.0) 02/20/22 20: RBC 4.40 10^6/uL (4.1-5.3) 02/20/22 20:21 Hgb 12.9 g/dL (11.5-15.3) 02/20/22 20: Hct 39.0 % (37.0-47.0) 02/20/22 20:21 MCV 88.6 fl (81-99) 02/20/22 20: MCH 29.3 pg (28.0-34.0) 02/20/22 20: MCHC 33.1 g/dL (30.0-36.0) 02/20/22 20:21 RDW 11.9 % (12.1-15.1) L 02/20/22 20: Plt Count 359 10^3/cmm (130-400) 02/20/22 20: MPV 9.7 fL (7.4-10.4) 02/20/22 20:21 Neut % (Auto) 61.9 % 02/20/22 20:21 Lymph % (Auto) 29.9 % 02/20/22 20:21 Spencer % (Auto) 6.7 % 02/20/22 20:21 Eos % (Auto) 0.7 % 02/20/22 20:21 Baso % (Auto) 0.6 % 02/20/22 20:21 Neut # (Auto) 5.02 10^3/uL (1.8-7.7) 02/20/22 20:21 Lymph # (Auto) 2.4 10^3/uL (0.8-4.8) 02/20/22 20:21 Spencer # (Auto) 0.5 10^3/uL (0.2-0.9) 02/20/22 20:21 Eos # (Auto) 0.1 10^3/uL (0.0-0.8) 02/20/22 20:21 Baso # (Auto) 0.1 10^3/uL (0.0-0.1) 02/20/22 20:21 Nucleated RBC % (auto) 0 % 02/20/22 20:21 Nucleated RBCs # 0.0 /100WBC 02/20/22 20:21 Sodium 135 mmol/L (136-145) L 02/20/22 20:21 Potassium 3.7 mmol/L (3.5-5.1) 02/20/22 20:21 Chloride 99 mmol/L (98-107) 02/20/22 20:21 Carbon Dioxide 26 mmol/L (22-29) 02/20/22 20:21 Anion Gap 13.7 (5-19) 02/20/22 20:21 BUN 10 mg/dL (6-20) 02/20/22 20:21 Creatinine 0.6 mg/dL (0.5-0.9) 02/20/22 20:21 GFR Calculation 111.9 mL/min (90-130) 02/20/22 20:21 Glucose 76 mg/dL (65-115) 02/20/22 20:21 Calculated Osmolality 278 mOsm/kg (285-295) L 02/20/22 20:21 Calcium 9.2 mg/dL (8.5-10.5) 02/20/22 20:21 Total Bilirubin 0.3 mg/dL (0.15-1.2) 02/20/22 20:21 AST 11 U/L (0-32) 02/20/22 20:21 ALT < 5 U/L (0-33) 02/20/22 20:21 Alkaline Phosphatase 75 IU/L (35-105) 02/20/22 20:21 Total Protein 7.5 g/dL (6.6-8.7) 02/20/22 20:21 Albumin 4.9 g/dL (3.5-5.2) 02/20/22 20:21 Globulin 2.6 g/dL (1.3-4.6) 02/20/22 20:21 Lipase 19 U/L (13-60) 02/20/22 20:21 HCG, Qual Negative (Negative) 02/20/22 20:21 Urine Color Yellow (Yellow) 02/20/22 20:21 Urine Appearance Clear (CLEAR) 02/20/22 20:21 Urine pH 6 (5-7) 02/20/22 20:21 Ur Specific Benedict 1.020 (1.005-1.030) 02/20/22 20:21 Urine Protein Neg (Negative) 02/20/22 20:21 Urine Glucose (UA) Norm (Normal) 02/20/22 20:21 Urine Ketones Negative (Negative) 02/20/22 20:21 Urine Blood Neg (Negative) 02/20/22 20:21 Urine Nitrate Negative (Negative) 02/20/22 20:21 Urine Bilirubin Neg (Negative) 02/20/22 20:21 Urine Urobilinogen Neg mg/dL (Negative) 02/20/22 20:21 Ur Leukocyte Esterase Negative (Negative) 02/20/22 20:21 Discharge Plan Discharge Patient Disposition: Home Clinical Impression: Abdominal pain, Colitis Condition: Stable Prescriptions: New ondansetron 4 mg tablet,disintegrating 4 mg PO Q8H PRN (Reason: nausea and vomiting) Qty: 15 0RF No Action medical marijuana 1 inh inhalation PRN citalopram 40 mg tablet 40 mg PO BEDTIME 30 Days Qty: 30 2RF trazodone 50 mg tablet 100 mg PO .HS PRN (Reason: insomnia) Qty: 60 2RF ketorolac 10 mg tablet 10 mg PO TID PRN (Reason: pain) 5 Days Qty: 14 0RF Hold Instructions: Resume on 03/04/22. pantoprazole 40 mg tablet,delayed release (DR/EC) 40 mg PO DAILY Qty: 30 0RF trazodone 50 mg tablet 50 mg PO DAILY Discharge Orders: Discharge ED (Routine); Ordered 02/20/22 Ordered By: Dillon Dowd Referrals: Kali Liriano MD [Primary Care Provider] - Discharge Diet: Advance as tolerated and Clear Liquid Discharge Activity: Increase activity as tolerated Patient Instructions: Abdominal Pain (ED), Infectious Colitis (ED), Opioid Safety Activity Restrictions/Additional Instructions: Thank you for visiting the emergency department. You were seen and evaluated for right upper quadrant abdominal pain. You do appear to have had evidence of mild colitis which may explain symptoms that I do not believe that this explains 6 months of symptoms. I will prescribe antibiotics, antinausea medication, and pain control. Please use caution using oxycodone as it can cause sedation and respiratory depression, other common side effects are constipation. Please follow-up with your primary care provider. If symptoms persist I recommend follow-up with general surgery or a diesel mechanic farm for consideration of endoscopy. Return to the emergency department for uncontrolled symptoms or anything else that you are concerned about and feel needs emergency department evaluation. Stand Alone Forms: Work/School Release Coding Level of Care Code ED Quality Improvement Coordinator (Rn) for Chg 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
[2022-02-20 20:28] LABS: Basophils # 0.1 10^3/uL (0.0-0.1); Basophils % 0.6 %; Eosinophils # 0.1 10^3/uL (0.0-0.8); Eosinophils % 0.7 %; Hemoglobin 12.9 g/dL (11.5-15.3); Lymphocytes # 2.4 10^3/uL (0.8-4.8); Lymphocytes % 29.9 %; Mean Corpuscular HGB Conc 33.1 g/dL (30.0-36.0); Mean Corpuscular Hemoglobin 29.3 pg (28.0-34.0); Mean Corpuscular Volume 88.6 fl (81-99); Mean Platelet Volume 9.7 fL (7.4-10.4); Monocytes # 0.5 10^3/uL (0.2-0.9); Monocytes % 6.7 %; Neutrophils # 5.02 10^3/uL (1.8-7.7); Neutrophils % 61.9 %; Nucleated Red Blood Cells % 0 %; Platelet Count 359 10^3/cmm (130-400); Red Cell Distribution Width 11.9 % (12.1-15.1); White Blood Count 8.1 10^3/uL (4.0-10.0)
--- NOTE | 2022-02-20 20:33 | USR_ITS ---
PROCEDURE INFORMATION: Exam: US Abdomen, Limited; Right Upper Quadrant Exam date and time: 02/20/2022 8:47 PM Age: 36 years old Clinical indication: Abdominal pain; Additional info: Ruq pain, eval gallbladder TECHNIQUE: Imaging protocol: Real time ultrasound of the abdomen with image documentation. Limited exam focused on the right upper quadrant. COMPARISON: CT abdomen pelvis w con* [id number] 09/06/2015 9:47 AM FINDINGS: Liver: Normal. No masses. Liver measures 13.1 cm in length. Gallbladder: Normal. No gallstones. Gallbladder wall measurement is at the upper limits of normal. Gallbladder wall thickness measures 3 mm but the gallbladder also appears partially contracted. Biliary ducts: Normal. No stones. No dilation. Common bile duct measures 4.5 mm. Pancreas: Visualized pancreas is unremarkable. Right kidney: Normal. No mass. No hydronephrosis. Right kidney measures 11.1 cm in length. US/US abdomen limited [id number] IMPRESSION: No acute findings.
[2022-02-20 20:34] LABS: Add Urine Microscopic? NO; Charge for UA Resulting for Rev
[2022-02-20 20:35] LABS: HCG Qualitative Urine. Negative (Negative)
[2022-02-20 20:37] LABS: Bilirubin Urine Neg (Negative); Blood Urine Neg (Negative); Glucose Urine UA Norm (Normal); Ketones Urine Negative (Negative); Leukocyte Esterase Urine Negative (Negative); Nitrate Urine Negative (Negative); Protein Urine Neg (Negative); Urine Appearance Clear (CLEAR); Urine Color Yellow (Yellow); Urobilinogen Urine Neg (Negative); pH Urine 6 (5-7)
[2022-02-20 20:40] VITALS: RESP 18
[2022-02-20] MEDS: ondansetron 2 mg/ML SDV 2 mL 4 MG IVP ×2 (20:40→23:21)
[2022-02-20] MEDS: morphine 4 mg/mL SDV 1 mL IVP ×2 (20:40→23:21)
[2022-02-20 20:51] LABS: Alanine Aminotransferase < 5 U/L (0-33); Albumin Level 4.9 g/dL (3.5-5.2); Alkaline Phosphatase 75 IU/L (35-105); Anion Gap 13.7 (5-19); Aspartate Amino Transferase 11 U/L (0-32); Blood Urea Nitrogen 10 mg/dL (6-20); Calcium 9.2 mg/dL (8.5-10.5); Carbon Dioxide 26 mmol/L (22-29); Chloride 99 mmol/L (98-107); Globulin 2.6 g/dL (1.3-4.6); Glomerular Filtration Rate 111.9 mL/min (90-130); Glucose 76 mg/dL (65-115); Lipase 19 U/L (13-60); Osmolality Calculated 278 mOsm/kg (285-295); Potassium 3.7 mmol/L (3.5-5.1); Sodium 135 mmol/L (136-145); Total Bilirubin 0.3 mg/dL (0.15-1.2); Total Protein 7.5 g/dL (6.6-8.7)
[2022-02-20 21:17] VITALS: BP 111/71; PULSE 66; RESP 16; O2SAT 98
--- NOTE | 2022-02-20 21:52 | CTR_ITS ---
PROCEDURE INFORMATION: Exam: CT Abdomen And Pelvis With Contrast Exam date and time: 02/20/2022 10:06 PM Age: 36 years old Clinical indication: Abdominal pain; Localized; Right upper quadrant (ruq); Prior surgery; Surgery type: Appy. Hysterectomy; Patient HX: Ruq pain with diarrhea; Additional info: Ruq abd pain TECHNIQUE: Imaging protocol: Computed tomography of the abdomen and pelvis with contrast. Radiation optimization: All CT scans at this facility use at least one of these dose optimization techniques: automated exposure control; mA and/or kV adjustment per patient size (includes targeted exams where dose is matched to clinical indication); or iterative reconstruction. Contrast material: OMNI 350; Contrast volume: 80 ml; Contrast route: INTRAVENOUS (IV); COMPARISON: CT abdomen pelvis w con* [id number] 09/06/2015 9:47 AM RADIATION DOSE METRICS: Total DLP (mGy-cm): 360.92 FINDINGS: Liver: Normal. No mass. Gallbladder and bile ducts: Normal. No calcified stones. No ductal dilation. Pancreas: Normal. No ductal dilation. Spleen: Normal. No splenomegaly. Adrenal glands: Normal. No mass. Kidneys and ureters: Normal. No hydronephrosis. Stomach and bowel: There is liquid stool present within nondilated ascending and transverse colon with a relatively decompressed descending and sigmoid colon seen. Appendix: Status post appendectomy. Intraperitoneal space: Unremarkable. No free air. No significant fluid collection. Vasculature: Unremarkable. No abdominal aortic aneurysm. Lymph nodes: Unremarkable. No enlarged lymph nodes. Urinary bladder: Unremarkable as visualized. Reproductive: Status post hysterectomy. Prominent hypoattenuation cystic mass seen within the left ovary measuring 3.1 x 3.6 x 4.1 cm. Bones/joints: Unremarkable. No acute fracture. Soft tissues: Unremarkable. CT/CT abdomen pelvis w con* [id number] IMPRESSION: 1. Liquid stool is seen within the nondilated ascending and transverse colon with a decompressed descending and sigmoid colon evident. Mild colitis cannot be entirely excluded. 2. Probable benign or functioning left ovarian cyst measuring up to 4.1 cm. No further workup needed.
[2022-02-20 22:00] VITALS: BP 101/65; PULSE 63; RESP 16; O2SAT 96
[2022-02-20] MEDS: iohexol 350 mg/mL 100 mL Btl IV (22:08)
[2022-02-20] MEDS: dicyclomine 10 mg Capsule PO (22:47)
[2022-02-20] MEDS: amoxicillin-clav 875-125 mg Tablet 1 TAB PO (23:20)
[2022-02-20 23:21] VITALS: RESP 18
[2022-02-20 23:35] VITALS: BP 102/63; PULSE 62; RESP 16; O2SAT 98
== END 2022-02-20 23:36 | disposition home or self-care (01) ==
PROVIDERS: Emergency Provider Emergency Medicine; PCP Family Medicine
DX: K52.9 Noninfective gastroenteritis and colitis, unspecified (principal); R10.9 Unspecified abdominal pain; Z87.891 Personal history of nicotine dependence
CPT/HCPCS: 74177; 76705; 80053; 81003; 81025; 83690; 85025; 96374; 96375; 96376; 99285; J2270; J2405; Q9967

== ENCOUNTER → 2022-02-23 10:43 | Outpatient (BNVA) | payer OTHER, MEDICAID, SELFPAY | PROVIDERS: PCP Family Medicine; Referring Provider Family Medicine; Visit Provider Surgery | DX: R19.4 Change in bowel habit (principal); R10.9 Unspecified abdominal pain | CPT/HCPCS: 99203 ==

== ENCOUNTER 2022-02-27 06:13 | Day surgery (SDC) | payer OTHER, MEDICAID, SELFPAY ==
[2022-02-25 13:10] VITALS: BMI 21.8
[2022-02-27 06:31] VITALS: BP 105/63; PULSE 98; RESP 18; TEMP 36.4; O2SAT 98
[2022-02-27] MEDS: sodium chloride 0.9% 1,000 ML 30 ML IV (06:35)
--- NOTE | 2022-02-27 07:01 | W.PM.OPSUD ---
Surgery/Procedure H&P Update DATE OF PROCEDURE: February 27, 2022 DATE H&P PERFORMED: 02/23/22 H&P UPDATE INFORMATION: I have reviewed H&P completed within last 30 days, I have examined patient prior to procedure and No changes to prior documentation PREOP DIAGNOSIS: Abdominal pain and change in bowel habits PRIMARY INDICATION FOR PROCEDURE: The same PLANNED PROCEDURE: Operation Date: 02/27/22 08:15 Proposed Procedures p EGD and colonoscopy [id number],R10.9(Not Applicable) - Jason Hernandez MD s Colonoscopy(Not Applicable) - Jason Hernandez MD
--- NOTE | 2022-02-27 08:13 | ANES.PREANE2 ---
Pre-Anesthetic Assessment Height/Weight: Height 1.63 m Weight 57.606 kg Temp Pulse Resp BP Pulse Ox O2 Del Method 97.6 F 98 18 105/63 98 02/27/22 06:31 02/27/22 06:31 02/27/22 06:31 02/27/22 06:31 02/27/22 06:31 02/27/22 06:31 Preop Diagnosis: Abdominal pain and change in bowel habits Operation Date: 02/27/22 08:15 Proposed Procedures p EGD and colonoscopy [id number],R10.9(Not Applicable) - Jason Hernandez MD s Colonoscopy(Not Applicable) - Jason Hernandez MD Familial anesthetic complications: None Was Beta Javier taken within 24 hours: N/A Was Clonidine taken within 24 hours: N/A Last intake: Intake Last Liquid Date 02/26/22 Last Liquid Time 23:30 Last Solid Date 02/25/22 Last Solid Time 17:00 Social Tobacco (Smokes rosalinda) and No alcohol Exam alert, oriented x 3 and regular rate & rhythm Airway Submandibular: within normal limits Cervical ROM: within normal limits Mallampati: Class III Dentition: false (lower) Comments: Comments: very small mouth opening Pulmonary Chronic Obstructive Pulmonary Disease GI Gastroesophageal Reflux Disease Neuropsych Anxiety and Depression PTSD Anesthetic Plan ASA status: 3 Anesthesia: MAC Medications/Allergies Home Medications Medication Instructions Recorded Confirmed Last Taken Type medical marijuana 1 inh inhalation PRN 03/21/21 02/27/22 02/26/22 History citalopram 40 mg tablet 40 mg PO BEDTIME 30 days #30 tabs 06/16/21 02/27/22 02/26/22 Rx trazodone 50 mg tablet 100 mg PO .HS PRN insomnia #60 tabs 06/16/21 02/27/22 02/26/22 Rx ondansetron 4 mg disintegrating 4 mg PO Q8H PRN nausea and 02/20/22 02/27/22 02/26/22 Rx tablet vomiting #15 tabs ketorolac 10 mg tablet 10 mg PO TID PRN pain 5 days #14 02/23/22 02/27/22 02/26/22 Rx tabs pantoprazole 40 mg tablet,delayed 40 mg PO DAILY #30 tabs 02/23/22 02/27/22 02/26/22 Rx release trazodone 50 mg tablet 50 mg PO DAILY 02/25/22 02/27/22 02/26/22 History Allergies Allergy/AdvReac Type Severity Reaction Status Date / Time No Known Allergies Allergy Verified 02/25/22 13:07 Current Medications Generic Name Dose Route Start Last Admin Trade Name Freq PRN Reason Stop Dose Admin Sodium Chloride 1,000 mls @ 30 mls/hr 02/27/22 06:30 02/27/22 06:35 Sodium Chloride 0.9% IV 30 mls/hr .Q24H JAZ Administration PFSH Anesthesia Medical History Anxiety and depression . Migraine headache Psychiatric care Surgical History History of appendectomy History of total hysterectomy Social History Smoking and tobacco status: former smoker Second hand smoke exposure: Yes Alcohol intake: never Data Anesthesia Cardiac Studies: No Data to Display
[2022-02-27 08:46] VITALS: BP 92/56; PULSE 65; RESP 14; TEMP 36.1; O2SAT 100
--- NOTE | 2022-02-27 08:50 | ANE.PACU2 ---
Inpatient post-anesthesia follow up: Airway intact: Yes Vital signs: Temperature 97.6 F Pulse Rate 98 Respiratory Rate 18 Blood Pressure 105/63 Pulse Oximetry 98 Oxygen Delivery Me thod Room Air Oxygen Flow Rate Fraction of Inspir ed Oxygen Hydration adequate: Yes Nausea and vomiting: No Pain level: 1 Mental status: Baseline
[2022-02-27 08:58] VITALS: BP 98/61; PULSE 65; RESP 18; O2SAT 100
== END 2022-02-27 09:21 | disposition home or self-care (01) ==
PROVIDERS: PCP Family Medicine; Visit Provider Surgery
PROC: 0DJ08ZZ Inspection of Upper Intestinal Tract, Via Natural or Artificial Opening Endoscopic (ICD-10-PCS; CPT 43235; principal; 2022-02-27 08:15)
PROC: 0DJD8ZZ Inspection of Lower Intestinal Tract, Via Natural or Artificial Opening Endoscopic (ICD-10-PCS; CPT 45378; 2022-02-27 08:15)
DX: R10.9 Unspecified abdominal pain (principal); R19.4 Change in bowel habit; D12.4 Benign neoplasm of descending colon; J44.9 Chronic obstructive pulmonary disease, unspecified; K21.9 Gastro-esophageal reflux disease without esophagitis; F41.9 Anxiety disorder, unspecified; F32.A Depression, unspecified; Z87.891 Personal history of nicotine dependence
CPT/HCPCS: 43239; 45385; 82274; 83630; 87493; 87506; 88305; J2704; J7030

== ENCOUNTER 2022-03-23 10:09 | Outpatient (CLI) | payer OTHER, MEDICAID, SELFPAY ==
--- NOTE | 2022-03-23 10:00 | NM_ITS ---
WS: [id number] NUCLEAR MEDICINE HIDA SCAN CLINICAL INFORMATION: Abd pain TECHNIQUE: Following intravenous administration of 7.5 mCi of technetium 99m mebrofenin, images of th e abdomen were obtained over the course of 60 minutes. Next, gallbladder ejection fraction was determ ined by obtaining preprandial and one-hour postprandial images of the gallbladder following oral clem stion of Ensure. COMPARISON: CTA 122 and ultrasound February 20, 2022 FINDINGS: Normal hepatic uptake at 5 minutes. Normal hepatic excretion. Gallbladder is visualized by 10 minutes . No evidence of acute cholecystitis. Normal small bowel and common bile duct activity. Gallbladder ejection fraction 62% within normal limits. No evidence of chronic cholecystitis. NM/NM hepatobiliary w phar* [id number] IMPRESSION: 1. No evidence of acute or chronic cholecystitis. 2. Gallbladder ejection fraction 62% within normal limits. 3. No other suspicious findings.
== END 2022-03-23 10:10 | disposition home or self-care (01) ==
LOC: RAD 10:11
PROVIDERS: PCP Family Medicine; Visit Provider Surgery
DX: R10.9 Unspecified abdominal pain (principal)
CPT/HCPCS: 78227; A9537

== ENCOUNTER 2022-04-02 11:18 | Emergency (ER) | payer OTHER, MEDICAID, SELFPAY ==
[2022-04-02 11:20] VITALS: BP 113/72; PULSE 90; RESP 16; TEMP 37.2; O2SAT 96; BMI 21.4
--- NOTE | 2022-04-02 12:14 | XR_ITS ---
WS: [id number] Portable AP upright chest, 04/02/2022 Clinical Data: dyspnea/cough Comparison: Portable chest, 10/31/2020. Findings: No nodules, masses or effusions are seen. The heart is normal. The pulmonary vascularity is not increased. No pneumonia or pneumothorax is seen. XR/XR chest 1V portable [id number] Impression: Negative chest.
[2022-04-02] MEDS: ketorolac 30 mg/mL INJ 60 MG IM (12:29)
[2022-04-02] MEDS: promethazine 25 mg/mL SDV 1 mL IM (12:33)
--- NOTE | 2022-04-02 13:32 | W.ED.COVID ---
HPI - COVID General: Chief Complaint: Headache Stated Complaint: n/v/d, migraine, fever Time Seen by Provider: 04/02/22 11:59 Triage information: Has fever, cough or shortness of breath. No known COVID + exposure last 14 days History of Present Illness: 36-year-old female presents emergency room complaining of headache cough myalgias initially began about 3 to 4 days ago with some diarrhea as well. She states she has a nonproductive cough. She is not been terribly short of breath but has had severe coughing fit some of which lead to actual vomiting. No photophobia and autophobia has severe headache associated with this as well. MD complaint: has COVID symptoms Prior covid testing: no COVID 19 common symptoms: positive fever(s), chills, non-productive cough, dyspnea, fatigue, body aches, headache(s), throat pain, nasal congestion, nausea, vomiting and diarrhea COVID 19 other sytmptoms: negative chest pain or requiring oxygen Onset (ago): day(s) Severity: moderate Treatment prior to arrival: none COVID Results: SARS-CoV-2 Antigen (Rapid) Negative (Negative) 02/21/21 20:12 SARS-CoV-2 (PCR) Detected (NOT DETECT) A 04/02/22 12:30 Coronavirus Type 229E (PCR) Not detected (NOT DETECT) 04/02/22 12:30 Review of Systems Const: Reports: fever(s), chills, body aches, fatigue and malaise ENMT: Reports: throat pain and nasal congestion Card: Denies: chest pain, palpitations, irregular heart rhythm, edema, dyspnea on exertion or orthopnea Resp: Reports: dyspnea and non-productive cough GI: Reports: abdominal pain, nausea, vomiting and diarrhea : Denies: flank pain, difficulty voiding, dysuria, urinary frequency or urinary urgency Skin/Breast: Denies: rash or pruritus Neuro: Reports: headache(s) PFSH ED PFSH: Medical History Anxiety and depression . Colon polyps Migraine headache Psychiatric care Surgical History History of appendectomy History of total hysterectomy Social History Smoking and tobacco status: current some day smoker (medical marijuana) Second hand smoke exposure: Yes Alcohol intake: never Physical Exam Const: COMMON NORMALS: no acute distress GENERAL APPEARANCE: cooperative and comfortable ORIENTATION/CONSCIOUSNESS: Yes awake, Yes oriented to person, Yes oriented to place and Yes oriented to time HENMT: COMMON NORMALS: normocephalic, atraumatic, hearing grossly normal bilaterally, external ears normal, EAC's normal, TM's normal bilaterally, Normal nasal mucous membranes and turbinates present, moist oral mucous membranes and oropharynx normal HEAD & SCALP: normocephalic and atraumatic NOSE: Normal nasal mucous membranes and turbinates present EXTERNAL EAR: Yes external ears normal EXTERNAL AUDITORY CANAL: EAC's normal TYMPANIC MEMBRANE: TM's normal bilaterally Eye: COMMON NORMALS: Equal, round and reactive pupils present, EOMs intact bilaterally, conjunctivae normal and no scleral icterus CONJUNCTIVA: Yes conjunctivae normal PUPIL: Yes Equal, round and reactive pupils present Neck/C-Spine: COMMON NORMALS: full ROM, no lymphadenopathy, supple and no JVD Resp: COMMON NORMALS: normal respiratory effort, No retractions, No use of accessory muscles and clear to auscultation bilaterally AUSCULTATION: clear to auscultation bilaterally Cardio: COMMON NORMALS: no JVD, regular rate, regular rhythm and No murmurs present (Cardio) RATE: regular rate RHYTHM: regular rhythm GI: COMMON NORMALS: Soft to palpation and No hepatosplenomegaly present AUSCULTATION: Yes normoactive bowel sounds PALPATION: Yes Soft to palpation, No Tenderness to palpation present (GI), No Guarding due to palpation present (GI) and Yes No hepatosplenomegaly present Extremity: COMMON NORMALS: normal to inspection, capillary refill normal, no clubbing, cyanosis or edema, no calf tenderness and no pedal edema Neuro: SENSORIUM/ORIENTATION: Yes oriented to person, Yes oriented to place and Yes oriented to time Skin: COMMON NORMALS: no rashes or lesions noted GENERAL SKIN EXAM: no rashes or lesions noted Course Vital Signs: Vital signs: Vital Signs Temperature 98.9 F 04/02/22 11:20 Pulse Rate 68 04/02/22 14:21 Respiratory Rate 16 04/02/22 14:21 Blood Pressure 113/72 04/02/22 11:20 Pulse Oximetry 97 04/02/22 14:21 Oxygen Delivery Me thod 04/02/22 11:20 MDM - COVID Medical Decision Making Suspected COVID we will swab patient discharged home given medications here for the headache which did improve as well as fluids we will contact with results recommend self quarantine until labs are resulted. Medical Records I reviewed the patient's medical records. Lab Data I reviewed the patient's lab results. Radiology Impressions Chest X-Ray 04/02/22 12:14 Impression: Negative chest. Laboratory Results Coronavirus 229E (PCR) Not detected (NOT DETECT) 04/02/22 12:30 SARS-CoV-2 (PCR) Detected (NOT DETECT) A 04/02/22 12:30 SARS-CoV-2 Antigen (Rapid) Negative (Negative) 02/21/21 20:12 SARS-CoV-2 (PCR) Detected (NOT DETECT) A 04/02/22 12:30 Coronavirus Type 229E (PCR) Not detected (NOT DETECT) 04/02/22 12:30 Discharge Plan Discharge Patient Disposition: Home Clinical Impression: Suspected 2019-nCoV infection Condition: Stable Prescriptions: No Action medical marijuana 1 inh inhalation PRN citalopram 40 mg tablet 40 mg PO BEDTIME 30 Days Qty: 30 2RF trazodone 50 mg tablet 100 mg PO .HS PRN (Reason: insomnia) Qty: 60 2RF ketorolac 10 mg tablet 10 mg PO TID PRN (Reason: pain) 5 Days Qty: 14 0RF Hold Instructions: Resume on 03/04/22. pantoprazole 40 mg tablet,delayed release (DR/EC) 40 mg PO DAILY Qty: 30 0RF trazodone 50 mg tablet 50 mg PO DAILY ondansetron 4 mg tablet,disintegrating 4 mg PO Q8H PRN (Reason: nausea and vomiting) Qty: 15 0RF Discharge Orders: Discharge ED (Routine); Ordered 04/02/22 Ordered By: Dean Funez Referrals: Kali Liriano MD [Primary Care Provider] - Discharge Diet: Usual diet Discharge Activity: Increase activity as tolerated Patient Instructions: Opioid Safety, Pain Management Activity Restrictions/Additional Instructions: You were tested today for COVID-19. Based on your clinical presentation is suspected you have COVID. Supportive cares for your symptoms. Recommend self quarantine until results are available we will call you when they become available. If you have worsening symptoms or shortness of breath return to the emergency room. Coding Level of Care Code ED Digital Color Press Operator for Edwige Swain
[2022-04-02 14:21] VITALS: PULSE 68; RESP 16; O2SAT 97
[2022-04-02 16:18] LABS: Adenovirus Not Detected (NOT DETECT); Chlamydia Pneumoniae Not Detected (NOT DETECT); Coronavirus 229E,HKU1,NL63,OC4 Not Detected (NOT DETECT); Human Metapneumovirus Not Detected (NOT DETECT); Human Rhinovirus/Enterovirus Not Detected (NOT DETECT); Influenza A Not Detected (NOT DETECT); Influenza A H1 Not Detected (NOT DETECT); Influenza A H1-2009 Not Detected (NOT DETECT); Influenza A H3 Not Detected (NOT DETECT); Influenza B Not Detected (NOT DETECT); Mycoplasma Pneumoniae Not Detected (NOT DETECT); Parainfluenza Virus Type 1 Not Detected (NOT DETECT); Parainfluenza Virus Type 2 Not Detected (NOT DETECT); Parainfluenza Virus Type 3 Not Detected (NOT DETECT); Parainfluenza Virus Type 4 Not Detected (NOT DETECT); Respiratory Syncytial Virus A Not Detected (NOT DETECT); Respiratory Syncytial Virus B Not Detected (NOT DETECT); SARS-COV-2 Detected (NOT DETECT)
== END 2022-04-02 14:22 | disposition home or self-care (01) ==
PROVIDERS: Emergency Provider Family Medicine; PCP Family Medicine
DX: U07.1 COVID-19 (principal)
CPT/HCPCS: 71045; 87635; 96372; 99284; J1885; J2550

== ENCOUNTER → 2022-04-13 10:14 | Day surgery (SDC) | payer OTHER, MEDICAID, SELFPAY ==
[2022-04-10 08:38] VITALS: BMI 21.4
[2022-04-13] VITALS (13 sets, daily range): BP systolic 98–121; BP diastolic 62–75; PULSE 62–93; RESP 12–18; TEMP 36.1–37.2; O2SAT 94–100
--- NOTE | 2022-04-13 10:36 | P.ANESASSM_ITS ---
Pre-Anesthetic Assessment Height/Weight: Height 1.63 m Weight 56.699 kg Temp Pulse Resp BP Pulse Ox O2 Del Method 99 F 72 18 107/68 98 04/13/22 10:29 04/13/22 10:29 04/13/22 10:29 04/13/22 10:29 04/13/22 10:29 04/13/22 10:29 Preop Diagnosis: right upper quadrant pain Operation Date: 04/13/22 13:40 Proposed [place] [id number],R10.11(Not Applicable) - Jason Hernandez MD Familial anesthetic complications: Pain with propofol infusion Was Beta Javier taken within 24 hours: N/A Was Clonidine taken within 24 hours: N/A Last intake: Intake Last Liquid Date 04/12/22 Last Liquid Time 22:40 Last Solid Date 04/12/22 Last Solid Time 21:00 Social Tobacco and No alcohol Cannabis use Exam alert, oriented x 3, clear to auscultation bilaterally and regular rate & rhythm Airway Submandibular: within normal limits Cervical ROM: within normal limits Mallampati: Class II Dentition: full History/ROS No significant complaints Pulmonary None reported Recent ED visit for what was suspected COVID 19 infection CV/HEM None reported None reported Hepatic None reported GI Gastroesophageal Reflux Disease RUQ pain Metabolic None reported Musc/skel None reported Neuropsych Anxiety, Bipolar, Depression and Headache PTSD Bereavement Anesthetic Plan ASA status: 2 Anesthesia: Anesthesia Evaluation and General Other: We discussed risk and benefits of general anesthesia including PONV, sore throat (sometimes severe), corneal abrasion, positioning and peripheral nerve injuries, life threatening allergic reaction, post operative ICU admission requiring prolonged intubation, stroke, heart attack, , and rare incidences of recall. Patient consents to proceed with general anesthesia. Pre op midazolam, diphenhydramine, scopolamine ordered. GETA with lidocaine prior to induction. Risk of > 500 ml blood loss (7ml/kg in children): No Medications/Allergies Home Medications Medication Instructions Recorded Confirmed Last Taken Type medical marijuana 1 inh inhalation PRN 03/21/21 04/13/22 04/13/22 07:30 History citalopram 40 mg tablet 40 mg PO BEDTIME 30 days #30 tabs 06/16/21 04/13/22 04/12/22 Rx trazodone 50 mg tablet 100 mg PO .HS PRN insomnia #60 tabs 06/16/21 04/13/22 04/12/22 Rx ondansetron 4 mg disintegrating 4 mg PO Q8H PRN nausea and 02/20/22 04/13/22 04/01/22 Rx tablet vomiting #15 tabs ketorolac 10 mg tablet 10 mg PO TID PRN pain 5 days #14 02/23/22 04/13/22 04/11/22 Rx tabs pantoprazole 40 mg tablet,delayed 40 mg PO DAILY #30 tabs 02/23/22 04/13/22 03/25/22 Rx release Allergies Allergy/AdvReac Type Severity Reaction Status Date / Time No Known Allergies Allergy Verified 04/13/22 10:23 [facility] Anesthesia Medical History Anxiety and depression . Colon polyps Migraine headache Psychiatric care Surgical History History of appendectomy History of total hysterectomy Social History Smoking and tobacco status: current some day smoker (medical marijuana) Second hand smoke exposure: Yes Alcohol intake: never Data Anesthesia Cardiac Studies: No Data to Display
[2022-04-13] MEDS: sodium chloride 0.9% 1,000 ML 30 ML IV (10:37)
[2022-04-13] MEDS: acetaminophen 1,000 MG/100 ML PIGGYBACK 400 MG IV (10:47)
--- NOTE | 2022-04-13 10:49 | W.PM.OPSUD ---
Surgery/Procedure H&P Update DATE OF PROCEDURE: April 13, 2022 DATE H&P PERFORMED: 03/25/22 H&P UPDATE INFORMATION: I have reviewed H&P completed within last 30 days, I have examined patient prior to procedure and No changes to prior documentation PREOP DIAGNOSIS: right upper quadrant pain PRIMARY INDICATION FOR PROCEDURE: The same PLANNED PROCEDURE: Operation Date: 04/13/22 13:40 Proposed Procedures p lap clayton possible open [id number],R10.11(Not Applicable) - Jason Hernandez MD
[2022-04-13] MEDS: midazolam 1 mg/mL INJ 2 mL 2 MG IVP (11:04)
[2022-04-13] MEDS: diphenhydrAMINE 50 mg/mL SDV 1mL 12.5 MG IVP (11:05)
[2022-04-13] MEDS: scopolamine 1.5 Patch 1 PATCH TRANSDERMA (11:06)
[2022-04-13] MEDS: ampicillin-sulbactam 3 GM in sodium chloride 0.9% (plus) 50 ML IV (11:18)
[2022-04-13] MEDS: lidocaine 2% INJ 20 mL INJECTION (11:48)
--- NOTE | 2022-04-13 12:27 | P.OP_ITS ---
Operative Report Date of procedure: April 13, 2022 Pre-op diagnosis: Preop Diagnosis right upper quadrant pain Post-op diagnosis: Chronic cholecystitis and fatty liver Procedure done: Laparoscopic cholecystectomy Implants: Surgicel at the gallbladder fossa Surgeon: Jason Hernandez MD Nailhead Setter: Surgical techAdamaris Garcia Circulating nurse Luisa Anesthesia: General (sign poster Adrian) Estimated blood loss (mL): 10 IV fluids (mL): 600 Procedure: Patient was identified in the holding area and taken back to the operative suite, placed in supine position intubated by anesthesia . Time-out was done verifying the patient's name/date of /planned procedure? and destination after the procedure, all were in agreement.? SCDs confirmed to be functioning, preoperative antibiotics administered per protocol, and beta joy protocol was confirmed. Patient was appropriately secured to the table, footboard was applied to the OR table, before prep and drape anesthesia was asked to tilt the table back and forth to make sure that the patient is appropriately secured and she was. Prep and drape of the abdomen was done under the usual sterile technique, followed by that infraumbilical skin incision, going through a previous call.? Skin incision was done by a 11 blade knife, and stay sutures were applied to the fascia and Mccord trocar technique was used to enter the abdominal without injuring any abdominal viscera, started by low flow gas insufflation followed by a high flow, started with a 10 mm laparoscope and under direct vision there was no evidence of any injuries, the scope then switched to a 30? ,10 millimeter scope and under direct visualization 5 millimeter trocar was inserted in the epigastric region followed by two 5 mm trocars were inserted in the right upper quadrant that was done after injection of local lidocaine 2% at all incision sites.? Gallbladder showed chronic cholecystitis. Patient was then positioned in the head up and tilted to the left. Ratcheted forceps were introduced into the lateral most 5mm port and was applied unto the fundus of the gallbladder cephalad and using Bullet forceps the infundibulum of the gallbladder was retracted laterally.? Using [place] forceps then L-hook cautery? to dissect the peritoneum overlying the Calot's triangle which was then opened medially and laterally until the cystic duct and the cystic artery were skeletonized.? Dissection was carried along the body of the gallbladder and after ensuring critical view of safety was identfied. Cystic duct and cystic artery where seen connected to the gallbladder. Clips were applied on the cystic duct towards the common bile duct 1 towards the gallbladder then divided is in sharp scissors, 2 clips were then applied onto the cystic artery and 1 towards the gallbladder and divided by sharp scissors.? ? Dissection was then carried along of the gallbladder from the gallbladder fossa using cautery as well as sharp dissection with heat energy.? The gallblad chance then was dissected out from the gallbladder fossa totally , cholecystectomy was then achieved and was placed in an Endo Catch bag and then retrieved from the Mccord trocar site under direct visualization using a 5 mm 30? scope through the epigastric trocar, specimen was then passed to the circulating nurse to go for permanent pathology,irrigation and hemostasis was done to the gallbladder fossa after hemostasis was secured and additional 2 pieces of Surgicel were applied at the gallbladder fossa, final survey laparoscopy was done that showed no injuries.?Suction irrigation was obtained. The infra umbilical fascial defect was then closed using interrupted number one PDS sutures using a fascial closure device Frankie Meza under direct visualization,following that Gas was allowed to deflate,Trocars were then taken out under direct vision there was no evidence of bleeding. Specimen was passed to the circulating nurse for permanent pathology. No drains were placed and the infraumbilical incision as well as all trocar sites were closed?by 3/0 Vicryl followed by 4-0 Monocryl? to approximate the skin edges of the incisions , dressing was applied in the form of surical glue and the patient patient got extubated and was taken to recovery area in a stable condition. Count of sponges,needles and instruments were completed at the end of the procedure I was present for the whole entire procedure.
--- NOTE | 2022-04-13 12:56 | SUR.PHASEI ---
PT TO PACU 5 PT SLEEPS WITH GOOD RESP EFFORT NOTED ORAL AIRWAY IN PLACE, 8L O2 MASK IN PLACE MONITOR SR WITH NO ECTOPY NOTED IV TO RT WRIST #20 WITH 200 ML UP AT KVO RATE PER GRAVITY. ID BRACELET TO LT WRIST, BILAT SCDS ON . WARM BLANKETS X 3 TO PT.
--- NOTE | 2022-04-13 13:04 | SUR.PHASEI ---
PT AWAKES ORAL AIRWAY OUT AND PT ON RA TRIAL, VSS. ABDOMEN SOFT WITH 4 SITES WITH SKIN GLUE UNCHANGED.
[2022-04-13] MEDS: meperidine 50 mg/mL INJ 12.5 MG IVP (13:13)
--- NOTE | 2022-04-13 13:17 | SUR.PHASEI ---
1310 PT SHIVERING AFTER AWAKENING, UNCONTROLLED WARM BLANKETS REPEATED X 3 SEE MED GIVEN FOR PAIN AND SHIVERING 1317 PT RESTS QUIETLY NOW, ABDOMEN UNCHANGED VSS PT SLEEPS IF NOT DISTURBED.
--- NOTE | 2022-04-13 13:50 | ANE.PACU2 ---
Inpatient post-anesthesia follow up: Airway intact: Yes Vital signs: Temperature 98 F Pulse Rate 84 Respiratory Rate 18 Blood Pressure 104/66 Pulse Oximetry 97 Oxygen Delivery Me thod Room Air Oxygen Flow Rate 8 Fraction of Inspir ed Oxygen Hydration adequate: Yes Nausea and vomiting: No Pain level: 1 Mental status: Baseline
[2022-04-13] MEDS: HYDROcodone-acetaminophen 5-325 mg Tablet 1 TAB PO (13:52)
--- NOTE | 2022-04-13 14:36 | ANE.PACU2 ---
Inpatient post-anesthesia follow up: Airway intact: Yes Vital signs: Temperature 98 F Pulse Rate 65 Respiratory Rate 18 Blood Pressure 108/65 Pulse Oximetry 98 Oxygen Delivery Me thod Room Air Oxygen Flow Rate 8 Fraction of Inspir ed Oxygen Hydration adequate: Yes Nausea and vomiting: No Pain level: 1 Mental status: Baseline
== END | disposition home or self-care (01) ==
PROVIDERS: PCP Family Medicine; Visit Provider Surgery
PROC: 0FT44ZZ Resection of Gallbladder, Percutaneous Endoscopic Approach (ICD-10-PCS; CPT 47562; principal; 2022-04-13 13:30)
DX: K81.1 Chronic cholecystitis (principal); K21.9 Gastro-esophageal reflux disease without esophagitis
CPT/HCPCS: 47562; 88304; J0295; J1100; J1200; J2175; J2250; J2405; J2704; J2710; J3010; J3490; J7030

== ENCOUNTER 2023-04-13 20:31 | Emergency (ER) | payer MEDICAID, SELFPAY ==
[2023-04-13 20:32] VITALS: BP 99/63; PULSE 74; RESP 17; TEMP 36.7; O2SAT 98; BMI 20.5
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
[2023-04-13] MEDS: naproxen 500 mg Tablet PO (22:00)
[2023-04-13 22:04] VITALS: BP 106/68; PULSE 67; RESP 16; O2SAT 100
== END 2023-04-13 22:06 | disposition home or self-care (01) ==
PROVIDERS: Emergency Provider Emergency Medicine; PCP Family Medicine
DX: S80.12XA Contusion of left lower leg, initial encounter (principal); W20.8XXA Other cause of strike by thrown, projected or falling object, initial encounter
CPT/HCPCS: 73590; 99283